=== PATIENT | male | born 1995 | race Caucasian/White ===

== ENCOUNTER → 2018-03-15 20:36 | Emergency (ER) | payer BC ==
[~2018-03-15 20:36] MED LIST: Ciprofloxacin TAB* 500 MG PO ONE
--- NOTE | 2018-03-15 21:59 | ED ---
Lower Extremity - HPI Summary HPI Summary: 22 male presents with nail in right foot. He states that the nail went through his shoe into his right foot. He removed the nail. He states his tetanus is up -to-date. No active bleeding from the site. He has no medical conditions. No pain at the moment. No numbness or tingling. No other injury. - History of Current Complaint Chief Complaint: EDExtremityLower Stated Complaint: RT FT INJURY Time Seen by Provider: 03/15/18 21:27 Pain Intensity: 2 - Allergies/Home Medications Allergies/Adverse Reactions: Allergies Allergy/AdvReac Type Severity Reaction Status Date / Time benzonatate AdvReac Hives Verified 03/15/18 20:45 nuts Allergy Severe Anaphylatic Uncoded 04/06/16 12:20 Shock PMH/Surg Hx/FS Hx/Imm Hx Endocrine/Hematology History: Denies: Hx Diabetes Respiratory History: Reports: Hx Asthma - as a child Infectious Disease History: No Infectious Disease History: Denies: Traveled Outside the [place] in Last 30 Days - Family History Known Family History: Negative: Cardiac Disease, Diabetes, Renal Disease - Social History Alcohol Use: Occasionally Substance Use Type: Reports: None Smoking Status (MU): Current Some Day Smoker Type: Cigarettes Amount Used/How Often: 1 pack per month Length of Time of Smoking/Using Tobacco: 3 years Have You Smoked in the Last Year: Yes Review of Systems Negative: Fever Negative: Chest Pain Negative: Shortness Of Breath Positive: Other - puncture right foot All Other Systems Reviewed And Are Negative: Yes Physical Exam Triage Information Reviewed: Yes Vital Signs On Initial Exam: Initial Vitals Temp Pulse Resp BP Pulse Ox 98.1 F 96 15 145/56 94 03/15/18 20:42 03/15/18 20:42 03/15/18 20:42 03/15/18 20:42 03/15/18 20:42 Vital Signs Reviewed: Yes Appearance: Positive: Well-Appearing Skin: Positive: Warm, Dry, Other - puncture wound right foot Head/Face: Positive: Normal Head/Face Inspection Eyes: Positive: Normal, Conjunctiva Clear ENT: Positive: Pharynx normal Respiratory/Lung Sounds: Positive: Clear to Auscultation, Breath Sounds Present Cardiovascular: Positive: Normal, RRR Musculoskeletal: Positive: Strength/ROM Intact - right foot, Other - good pulses Neurological: Positive: Normal Psychiatric: Positive: Normal Diagnostics - Vital Signs Vital Signs Temp Pulse Resp BP Pulse Ox 03/15/18 20:42 98.1 F 96 15 145/56 94 - Laboratory Lab Statement: Any lab studies that have been ordered have been reviewed, and results considered in the medical decision making process. Lower Extremity Course/Dx - Course Course Of Treatment: 22 male presents with nail in right foot. He states that the nail went through his shoe into his right foot. He removed the nail. He states his tetanus is up-to-date. No active bleeding from the site. He has no medical conditions. No pain at the moment. No numbness or tingling. No other injury. On exam small puncture wound seen on right foot. no active bleeding. Area was irrigated. Will place on Cipro due to going through the shoe. Told to watch for any signs of infection. Patient understands agrees with plan. - Diagnoses Differential Diagnosis/HQI/PQRI: Positive: Cellulitis, Other - lac, puncture wound Provider Diagnoses: Puncture wound of foot Discharge - Sign-Out/Discharge Documenting (check all that apply): Patient Departure - Discharge Plan Condition: Good Disposition: HOME Prescriptions: Ciprofloxacin TAB* [Cipro 500 MG TAB*] 500 mg PO BID #9 tab Patient Education Materials: Puncture Wound (ED) Referrals: No Primary Care Phys,NOPCP [Primary Care Provider] - Additional Instructions: Take antibiotic twice a day for 5 days Soak area twice a day Place Neosporin on area Return to ED if develop any signs of infection such as spreading redness, fever , or pus, or any new or worsening symptoms - Billing Disposition and Condition Condition: GOOD Disposition: Home
[2018-03-15 22:34] VITALS: BP 0/0
== END | disposition home or self-care (01) ==
LOC: ED 20:36
DX: S91.331A Puncture wound without foreign body, right foot, initial encounter (principal); W45.0XXA Nail entering through skin, initial encounter; Y93.9 Activity, unspecified; Y92.9 Unspecified place or not applicable; Z72.0 Tobacco use
CPT/HCPCS: 99282; A9270-GY